=== PATIENT | female | born 1990 | race African-American/Black ===

== ENCOUNTER 2022-02-01 04:01 | Day surgery (SDC) | payer OTHER ==
[2022-01-28 17:46] VITALS: BMI 32.1
[2022-02-01] MEDS ORDERED: ONDANSETRON 4 MG/2 ML VIAL IVPUSH PRN (12:34)
[2022-02-01] MEDS ORDERED: LACTATED RINGERS SOLUTION 1,000 ML IV SCH (12:45)
[2022-02-01] MEDS ORDERED: INDOMETHACIN 50 MG CAPSULE PO ONE (13:57)
[2022-02-01 16:47] VITALS: RESP 18
[2022-02-01 17:43] VITALS: BP 105/62; PULSE 78; TEMP 97.7
== END 2022-02-01 19:25 | disposition home or self-care (01) ==
LOC: JASU-SURG 04:01
PROVIDERS: ATTEND Obstetrics & Gynecology Maternal & Fetal Medicine
PROC: 0UVC7ZZ Restriction of Cervix, Via Natural or Artificial Opening (ICD-10-PCS; principal; 2022-02-01 12:00)
DX: O26.891 Other specified pregnancy related conditions, first trimester (principal); Z87.59 Personal history of other complications of pregnancy, childbirth and the puerperium; Z3A.12 12 weeks gestation of pregnancy
CPT/HCPCS: 94760

== ENCOUNTER 2022-08-05 18:45 | Inpatient (IN) | payer OTHER, BC ==
[2022-08-05] MEDS: DEXTROSE 5%-LACTATED RINGERS 1,000 ML IV SCH (19:40)
[2022-08-05] MEDS ORDERED: SODIUM CHLORIDE 500 ML IV STA (20:30)
[2022-08-05 20:32] VITALS: BMI 33.6
[2022-08-05 20:35] LABS: BASO % 0.4 % (0-2.0); EOS % 1.7 % (0-4.5); HEMATOCRIT 35.2 % (32.4-45.2); HEMOGLOBIN 11.3 GM/dL (10.7-15.3); LYMPH % 18.4 % (8-40); MCHC 32.1 g/dl (32.0-36.0); MEAN CELL VOLUME 77.8 fl (80-96); MEAN PLT VOLUME 8.4 fl (7.5-11.1); MONO % 11.1 % (3.8-10.2); NEUT % 68.4 % (42.8-82.8); PLATELET COUNT 320 10^3/uL (134-434); RBC 4.53 M/mm3 (3.60-5.2); RDW 14.4 % (11.6-15.6); WHITE BLOOD COUNT 7.9 K/mm3 (4.0-10.0)
[2022-08-05 20:42] LABS: INR 0.99 (0.83-1.09); PROTHROMBIN TIME (PATIENT) 11.5 SEC (9.7-13.0)
[2022-08-05 20:45] LABS: ACTIVATED PTT 26.6 SECONDS (25.2-36.5)
[2022-08-05 20:47] LABS: CALCIUM 9.2 mg/dL (8.5-10.1)
[2022-08-05 20:48] LABS: BLOOD UREA NITROGEN 4.7 mg/dL (7-18)
[2022-08-05 20:51] LABS: CREATININE 0.5 mg/dL (0.55-1.3)
[2022-08-05] MEDS: MISOPROSTOL 25 MCG TABLET (COMPOUNDED BY PHARMACY) PV SCH (21:30)
[2022-08-06] MEDS ORDERED: SODIUM CHLORIDE 500 ML IV STA (02:59)
[2022-08-06] MEDS: MISOPROSTOL 25 MCG TABLET (COMPOUNDED BY PHARMACY) PV SCH (03:05)
[2022-08-06] MEDS ORDERED: HEPARIN NA (PORCINE) 5,000 UNITS/ML 1ML VIAL SQ ONE ×2 (08:07→23:28)
[2022-08-06] MEDS ORDERED: OXYTOCIN 30 UNITS in 0.9% NS 30 UNIT/500 ML INFUS.BAG IVPB SCH (08:15)
[2022-08-06] MEDS ORDERED: OXYTOCIN 30 UNITS in 0.9% NS 30 UNIT/500 ML INFUS.BAG IVPB ONE (08:46)
[2022-08-06] MEDS ORDERED: morphine SULFATE 4 MG/ML VIAL ONE (13:19)
[2022-08-06] MEDS ORDERED: morphine CARPU-JECT 8 MG/1 ML DISP.SYRIN IVPB ONE (14:00)
[2022-08-06] MEDS: MISOPROSTOL 100 MCG TABLET PV SCH (20:45)
[2022-08-07] MEDS: DEXTROSE 5%-LACTATED RINGERS 1,000 ML IV SCH (01:08)
[2022-08-07] MEDS ORDERED: morphine CARPU-JECT 8 MG/1 ML DISP.SYRIN IVPB ONE (01:51)
[2022-08-07] MEDS ORDERED: morphine SULFATE 4 MG/ML VIAL ONE (01:56)
[2022-08-07] MEDS ORDERED: SODIUM CHLORIDE 1,000 ML IV STA (07:10)
[2022-08-07] MEDS ORDERED: CITRIC ACID/SODIUM CITRATE 30 ML UNIT-DOSE CUP PO ONE (07:11)
[2022-08-07] MEDS ORDERED: FENTANYL CITRATE/PF 50 MCG/ML VIAL ONE (07:26)
[2022-08-07] MEDS ORDERED: AMPICILLIN SODIUM 2 GM VIAL ONE (07:53)
[2022-08-07] MEDS ORDERED: AMPICILLIN - 2 GM in SODIUM CHLORIDE 100 ML IVPB ONE (08:00)
[2022-08-07] MEDS ORDERED: AZITHROMYCIN IVPB 500 MG/250 ML BAG IVPB ONE ×2 (08:15→08:24)
[2022-08-07] MEDS ORDERED: ONDANSETRON 4 MG/2 ML VIAL IVPUSH PRN (08:18)
[2022-08-07] MEDS ORDERED: morphine SULFATE/PF 1 MG/2 ML (2cc Syringe - QUVA) EP ONE (08:18)
[2022-08-07] MEDS ORDERED: SODIUM CHLORIDE 0.9% P/F 10 ML VIAL IJ ONE (08:30)
[2022-08-07] MEDS ORDERED: OXYTOCIN 10 UNITS/ML VIAL ONE (09:06)
[2022-08-07] MEDS ORDERED: KETOROLAC TROMETHAMINE 30 MG/1 ML VIAL ONE (09:06)
[2022-08-07] MEDS ORDERED: ONDANSETRON 4 MG/2 ML VIAL ONE (09:06)
[2022-08-07 09:36] LABS: CORD BASE EXCESS -0.4 mmol/L (0-2); CORD HCO3 26.8 mmHg (20-29); CORD PCO2 54.3 mmHg (30-78); CORD pH 7.311 (7.14-7.44)
[2022-08-07 09:39] LABS: CORD BASE EXCESS -1.4 mmol/L (0-2); CORD HCO3 25.2 mmHg (20-29); CORD PCO2 49.9 mmHg (30-78); CORD pH 7.322 (7.14-7.44)
[2022-08-07] MEDS: OXYTOCIN 20 UNITS in 0.9% NS 20 UNIT/1,000 ML INFUS.BAG IV SCH ×2 (10:00→18:11)
[2022-08-07] MEDS ORDERED: ACETAMINOPHEN 325 MG TABLET (FP) PO PRN (10:01)
[2022-08-07] MEDS ORDERED: SENNOSIDES/DOCUSATE COMBO (SENNA PLUS) TABLET (UD) PO PRN (10:01)
[2022-08-07] MEDS ORDERED: OXYTOCIN 20 UNITS in 0.9% NS 20 UNIT/1,000 ML INFUS.BAG IV ONE (10:24)
[2022-08-07] MEDS: MISOPROSTOL 100 MCG TABLET PV SCH ×2 (19:03→19:04)
[2022-08-07] MEDS: MISOPROSTOL 25 MCG TABLET (COMPOUNDED BY PHARMACY) PV SCH (19:03)
[2022-08-07] MEDS ORDERED: HEPARIN NA (PORCINE) 5,000 UNITS/ML 1ML VIAL SQ ONE (22:00)
[2022-08-07] MEDS: FERROUS SO4 325 MG TABLET (FP) PO SCH (22:57)
[2022-08-08] MEDS: IBUPROFEN 600 MG TABLET (FP) PO PRN (03:41)
[2022-08-08] MEDS: SIMETHICONE 80 MG TAB.CHEW (FP) PO PRN ×2 (03:41→07:56)
[2022-08-08] MEDS: ACETAMINOPHEN 325 MG TABLET (FP) PO PRN ×2 (07:53→20:40)
[2022-08-08 08:14] LABS: BASO % 0.2 % (0-2.0); EOS % 0.7 % (0-4.5); HEMATOCRIT 26.4 % (32.4-45.2); HEMOGLOBIN 8.3 GM/dL (10.7-15.3); LYMPH % 9.5 % (8-40); MCH 24.7 pg (25.7-33.7); MCHC 31.5 g/dl (32.0-36.0); MEAN CELL VOLUME 78.5 fl (80-96); MEAN PLT VOLUME 7.6 fl (7.5-11.1); MONO % 8.4 % (3.8-10.2); NEUT % 81.2 % (42.8-82.8); PLATELET COUNT 232 10^3/uL (134-434); RBC 3.36 M/mm3 (3.60-5.2); RDW 14.1 % (11.6-15.6); WHITE BLOOD COUNT 18.9 K/mm3 (4.0-10.0)
[2022-08-08] MEDS: PRENATAL VITAMINS W/ FOLIC ACID TABLET (FP) PO SCH (08:59)
[2022-08-08] MEDS: FERROUS SO4 325 MG TABLET (FP) PO SCH ×2 (08:59→21:20)
[2022-08-08] MEDS: DEXTROSE 5%-LACTATED RINGERS 1,000 ML IV SCH (20:21)
[2022-08-08] MEDS: AMPICILLIN - 2 GM in SODIUM CHLORIDE 100 ML IVPB SCH ×2 (20:22→23:55)
[2022-08-08] MEDS: CLINDAMYCIN 900 MG PREMIX IVPB 900 MG/50 ML BAG IVPB SCH (20:22)
[2022-08-08] MEDS: OXYTOCIN 20 UNITS in 0.9% NS 20 UNIT/1,000 ML INFUS.BAG IV SCH (21:19)
[2022-08-08] MEDS: DEXTROSE 5% IVPB SCH (21:22)
[2022-08-08] MEDS: GENTAMICIN IVPB SCH (21:22)
[2022-08-08] MEDS: WATER IVPB SCH (21:22)
[2022-08-09] MEDS ORDERED: AMPICILLIN SODIUM 2 GM VIAL ONE (02:30)
[2022-08-09] MEDS: SIMETHICONE 80 MG TAB.CHEW (FP) PO PRN ×4 (02:43→22:12)
[2022-08-09] MEDS: oxyCODONE HCL 5 MG TABLET PO PRN ×2 (02:43→06:24)
[2022-08-09] MEDS: AMPICILLIN - 2 GM in SODIUM CHLORIDE 100 ML IVPB SCH ×4 (02:44→16:30)
[2022-08-09] MEDS: CLINDAMYCIN 900 MG PREMIX IVPB 900 MG/50 ML BAG IVPB SCH ×2 (04:35→11:48)
[2022-08-09] MEDS: PRENATAL VITAMINS W/ FOLIC ACID TABLET (FP) PO SCH (09:54)
[2022-08-09] MEDS: IBUPROFEN 600 MG TABLET (FP) PO PRN ×3 (09:54→22:12)
[2022-08-09] MEDS: FERROUS SO4 325 MG TABLET (FP) PO SCH ×2 (09:54→22:12)
[2022-08-09 14:56] VITALS: TEMP 97.6
[2022-08-09] MEDS: GENTAMICIN IVPB SCH (17:18)
[2022-08-09] MEDS: DEXTROSE 5% IVPB SCH (17:18)
[2022-08-09] MEDS: WATER IVPB SCH (17:18)
[2022-08-09] MEDS: DEXTROSE 5%-LACTATED RINGERS 1,000 ML IV SCH (19:21)
[2022-08-10] MEDS: oxyCODONE HCL 5 MG TABLET PO PRN ×2 (04:18→10:10)
[2022-08-10] MEDS: SIMETHICONE 80 MG TAB.CHEW (FP) PO PRN ×2 (04:18→10:09)
[2022-08-10 08:26] LABS: BASO % 0.2 % (0-2.0); EOS % 2.5 % (0-4.5); HEMATOCRIT 26.2 % (32.4-45.2); HEMOGLOBIN 8.2 GM/dL (10.7-15.3); LYMPH % 14.7 % (8-40); MCH 24.5 pg (25.7-33.7); MCHC 31.3 g/dl (32.0-36.0); MEAN CELL VOLUME 78.4 fl (80-96); MEAN PLT VOLUME 7.7 fl (7.5-11.1); MONO % 6.7 % (3.8-10.2); NEUT % 75.9 % (42.8-82.8); PLATELET COUNT 289 10^3/uL (134-434); RBC 3.35 M/mm3 (3.60-5.2); RDW 14.5 % (11.6-15.6); WHITE BLOOD COUNT 13.2 K/mm3 (4.0-10.0)
[2022-08-10 09:13] VITALS: BP 126/76; PULSE 68; RESP 20
[2022-08-10] MEDS: PRENATAL VITAMINS W/ FOLIC ACID TABLET (FP) PO SCH (10:10)
[2022-08-10] MEDS: FERROUS SO4 325 MG TABLET (FP) PO SCH (10:10)
== END 2022-08-10 15:30 | disposition home or self-care (01) | DRG 540 ==
LOC: JLDR 18:45 → J3W 08-07 11:30
PROVIDERS: ADMIT Obstetrics & Gynecology Maternal & Fetal Medicine; ATTEND Obstetrics & Gynecology Maternal & Fetal Medicine
PROC: 3E0P7VZ Introduction of Hormone into Female Reproductive, Via Natural or Artificial Opening (ICD-10-PCS; 2022-08-05)
PROC: 10D00Z1 Extraction of Products of Conception, Low, Open Approach (ICD-10-PCS; principal; 2022-08-07)
PROC: 10H07YZ Insertion of Other Device into Products of Conception, Via Natural or Artificial Opening (ICD-10-PCS; 2022-08-07)
DX: O62.0 Primary inadequate contractions (principal); O75.2 Pyrexia during labor, not elsewhere classified; O10.92 Unspecified pre-existing hypertension complicating childbirth; O34.33 Maternal care for cervical incompetence, third trimester; O76 Abnormality in fetal heart rate and rhythm complicating labor and delivery; J00 Acute nasopharyngitis [common cold]; Z3A.39 39 weeks gestation of pregnancy; Z37.0 Single live birth; Z87.59 Personal history of other complications of pregnancy, childbirth and the puerperium
CPT/HCPCS: 36415; 36600; 80048; 82803; 85025; 85610; 85730; 86780; 86850; 86900; 86901; 87040; 88307-TC; 94010; C9803-CS; J1644; U0003; U0005

== ENCOUNTER 2024-01-30 04:34 | Day surgery (SDC) | payer OTHER ==
[2024-01-29 16:44] VITALS: BMI 33.5
[2024-01-30 08:28] LABS: BASO % 0.4 % (0-2.0); EOS % 2.4 % (0-4.5); HEMOGLOBIN 12.2 GM/dL (10.7-15.3); LYMPH % 21.3 % (8-40); MCH 27.1 pg (25.7-33.7); MEAN CELL VOLUME 82.2 fl (80-96); MEAN PLT VOLUME 7.1 fl (7.5-11.1); MONO % 7.7 % (3.8-10.2); NEUT % 68.2 % (42.8-82.8); PLATELET COUNT 321 10^3/uL (134-434); RDW 13.4 % (11.6-15.6); WHITE BLOOD COUNT 7.1 K/mm3 (4.0-10.0)
[2024-01-30] MEDS ORDERED: cefOXitin SODIUM 2 GM VIAL (RESTRICTED TO ID) IVPB ONE (10:21)
[2024-01-30] MEDS ORDERED: CLINDAMYCIN PHOSPHATE 600 MG/4 ML VIAL ONE (10:21)
[2024-01-30] MEDS ORDERED: ceFAZolin SODIUM 1 GM VIAL ONE (10:22)
[2024-01-30] MEDS ORDERED: PROPOFOL 20 ML ONE ×2 (10:22)
[2024-01-30] MEDS ORDERED: CLINDAMYCIN PHOSPHATE 300 MG/2 ML VIAL ONE (10:22)
[2024-01-30] MEDS ORDERED: LIDOCAINE HCL/PF 2% SDV 5ML VIAL ONE (10:22)
[2024-01-30] MEDS ORDERED: ONDANSETRON 4 MG/2 ML VIAL IVPUSH PRN (10:54)
[2024-01-30] MEDS ORDERED: LACTATED RINGERS SOLUTION 1,000 ML IV SCH (11:00)
[2024-01-30] MEDS: INDOMETHACIN 50 MG CAPSULE PO ONE (13:19)
[2024-01-30 13:59] VITALS: RESP 20
[2024-01-30 18:05] VITALS: BP 118/60; PULSE 74; TEMP 98
== END 2024-01-30 17:10 | disposition home or self-care (01) ==
LOC: JASU-SURG 04:34
PROVIDERS: ATTEND Obstetrics & Gynecology Maternal & Fetal Medicine
PROC: 0UVC7ZZ Restriction of Cervix, Via Natural or Artificial Opening (ICD-10-PCS; principal; 2024-01-30 10:00)
DX: N88.3 Incompetence of cervix uteri (principal); Z3A.15 15 weeks gestation of pregnancy
CPT/HCPCS: 36415; 85025; 86850; 86900; 86901; 94760